=== PATIENT | male | born 2000 | race Caucasian/White ===

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

== ENCOUNTER 2021-11-23 04:02 | Emergency (ER) | payer BC, OTHER ==
[~2021-11-23] VITALS: Ht 177.8 cm; Wt 68.9 kg
[2021-11-23 04:19] VITALS: BP 138/74
[2021-11-23] MEDS ORDERED: PREDNISONE20 M1 PO (04:50)
== END 2021-11-23 05:04 | disposition home or self-care (01) ==
LOC: ED 04:02
DX: J45.909 Unspecified asthma, uncomplicated (principal); Z90.89 Acquired absence of other organs

== ENCOUNTER 2021-12-28 20:38 | Emergency (ER) | payer OTHER, BC ==
[2021-12-28 20:48] VITALS: BP 128/66
== END 2021-12-28 21:12 | disposition home or self-care (01) ==
LOC: ED 20:38
DX: S61.211A Laceration without foreign body of left index finger without damage to nail, initial encounter (principal); Z90.89 Acquired absence of other organs; W45.8XXA Other foreign body or object entering through skin, initial encounter; Y93.89 Activity, other specified; Y92.89 Other specified places as the place of occurrence of the external cause; Y99.8 Other external cause status

== ENCOUNTER 2023-04-09 10:41 | Emergency (ER) | payer OTHER, BC ==
[~2023-04-09] VITALS: Ht 175.2 cm; Wt 72.6 kg
[2023-04-09 10:54] VITALS: BP 154/82
[2023-04-09] MEDS ORDERED: SEPTDS PO (11:42)
[2023-04-09] MEDS ORDERED: CEPHALEXIN500 M1 PO (11:42)
== END 2023-04-09 19:16 | disposition home or self-care (01) ==
LOC: ED 10:41
DX: M70.21 Olecranon bursitis, right elbow (principal); L03.113 Cellulitis of right upper limb; Z90.89 Acquired absence of other organs; J45.909 Unspecified asthma, uncomplicated; Z88.8 Allergy status to other drugs, medicaments and biological substances